=== PATIENT | male | born 1995 | race African-American/Black ===

== ENCOUNTER 2017-05-30 09:55 | Emergency (ER) | payer MEDICAID ==
[~2017-05-30] VITALS: Ht 185.4 cm; Wt 75.3 kg
[2017-05-30 09:59] VITALS: BP 121/80
[2017-05-30] MEDS ORDERED: CARBAMIDE PEROXIDE EAR DROPS 6.5%, 15ML RIGHT EAR ONE (10:30)
[2017-05-30] MEDS ORDERED: CARBAMIDE PEROXIDE EAR DROPS 6.5%, 15ML ONE (10:32)
== END 2017-05-30 11:03 | disposition home or self-care (01) ==
LOC: ED 10:57
DX: H61.21 Impacted cerumen, right ear (principal); H65.01 Acute serous otitis media, right ear
CPT/HCPCS: 99283